=== PATIENT | female | born 1990 | race American Indian/Alaskan Native ===

== ENCOUNTER 2016-06-11 14:50 | Emergency (ER) | payer MEDICAID, OTHER ==
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
[2016-06-11] MEDS ORDERED: TORADOL IM ONE (22:09)
[2016-06-11 22:10] VITALS: BP 117/70
== END 2016-06-11 22:55 | disposition home or self-care (01) ==
LOC: ED 14:50
DX: S16.1XXA Strain of muscle, fascia and tendon at neck level, initial encounter (principal); M54.6 Pain in thoracic spine; J45.909 Unspecified asthma, uncomplicated; V43.52XA Car driver injured in collision with other type car in traffic accident, initial encounter; Y93.9 Activity, unspecified; Y99.9 Unspecified external cause status; Y92.410 Unspecified street and highway as the place of occurrence of the external cause
CPT/HCPCS: 99282

== ENCOUNTER 2016-11-02 11:07 | Emergency (ER) | payer SELFPAY ==
[2016-11-02 12:10] VITALS: BP 126/81
[2016-11-02] MEDS ORDERED: DECADRON IM ONE (12:20)
--- NOTE | 2016-11-02 12:20 | Emergency Department Report ---
ED General Adult HPI - General Chief complaint: Upper Respiratory Infection Stated complaint: SOB/SINUS INFECTION Time Seen by Provider: 11/02/16 12:16 Source: patient Mode of arrival: Ambulatory Limitations: No Limitations - History of Present Illness Initial comments: 26-year-old female presents to the ED complaining about sinus congestion, pressure, pain with postnasal drip and dry intermittent cough. States history of asthma and having some chest tightness today. Denies fever, chest pain, shortness of breath, abdominal pain, nausea, vomiting, diarrhea. -: Gradual, days(s) (3) Radiation: non-radiation - Related Data Previous Rx's Medication Instructions Recorded Last Taken Type Pnv95/Ferrous Fumarate/FA 1 each PO QDAY #30 tablet 04/26/14 Unknown Rx [ Vitamins] Cyclobenzaprine [Flexeril] 10 mg PO TID PRN #15 tablet 06/11/16 Unknown Rx Ibuprofen [Motrin] 600 mg PO Q8H PRN #15 tablet 06/11/16 Unknown Rx ALBUTEROL Inhaler [ProAir HFA 2 puff IH PRN PRN #1 inha 11/02/16 Unknown Rx Inhaler] Amoxicillin/K Clav Tab [Augmentin 1 tab PO Q12HR #14 tab 11/02/16 Unknown Rx 875 mg] Prednisone [predniSONE 10 mg 10 mg PO .TAPER #1 tab.ds.pk 11/02/16 Unknown Rx (6-Day Pack, 21 Tabs)] Allergies Allergy/AdvReac Type Severity Reaction Status Date / Time No Known Allergies Allergy Verified 11/02/16 12:06 ED Review of Systems ROS: Stated complaint: SOB/SINUS INFECTION Other details as noted in HPI Constitutional: denies: chills, fever Eyes: denies: eye pain, eye discharge, vision change ENT: throat pain, congestion. denies: ear pain Respiratory: cough. denies: shortness of breath, wheezing Cardiovascular: denies: chest pain, palpitations Endocrine: no symptoms reported Gastrointestinal: denies: abdominal pain, nausea, diarrhea Genitourinary: denies: urgency, dysuria, discharge Musculoskeletal: denies: back pain, joint swelling, arthralgia Skin: denies: rash, lesions Neurological: denies: headache, weakness, paresthesias Psychiatric: denies: anxiety, depression Hematological/Lymphatic: denies: easy bleeding, easy bruising ED Past Medical Hx - Past Medical History Hx Hypertension: No Hx Diabetes: No Hx Deep Vein Thrombosis: No Hx Renal Disease: No Hx Sickle Cell Disease: No Hx Seizures: No Hx Asthma: Yes (last attack 10/22/2014) Hx COPD: No Hx HIV: No - Social History Smoking Status: Never Smoker Substance Use Type: None - Medications Home Medications: Home Medications Medication Instructions Recorded Confirmed Last Taken Type Pnv95/Ferrous Fumarate/FA 1 each PO QDAY #30 tablet 04/26/14 11/03/14 Unknown Rx [ Vitamins] Cyclobenzaprine [Flexeril] 10 mg PO TID PRN #15 tablet 06/11/16 Unknown Rx Ibuprofen [Motrin] 600 mg PO Q8H PRN #15 tablet 06/11/16 Unknown Rx ALBUTEROL Inhaler [ProAir HFA 2 puff IH PRN PRN #1 inha 11/02/16 Unknown Rx Inhaler] Amoxicillin/K Clav Tab [Augmentin 1 tab PO Q12HR #14 tab 11/02/16 Unknown Rx 875 mg] Prednisone [predniSONE 10 mg 10 mg PO .TAPER #1 tab.ds.pk 11/02/16 Unknown Rx (6-Day Pack, 21 Tabs)] ED Physical Exam - General Limitations: No Limitations General appearance: alert, in no apparent distress - Head Head exam: Present: atraumatic, normocephalic - Eye Eye exam: Present: normal appearance - ENT ENT exam: Present: normal orophraynx, mucous membranes moist, TM's normal bilaterally - Neck Neck exam: Present: normal inspection, full ROM. Absent: tenderness, meningismus, lymphadenopathy - Respiratory Respiratory exam: Present: normal lung sounds bilaterally. Absent: respiratory distress, wheezes, rales, rhonchi, stridor - Cardiovascular Cardiovascular Exam: Present: regular rate, normal rhythm. Absent: systolic murmur, diastolic murmur, rubs, gallop - GI/Abdominal GI/Abdominal exam: Present: soft, normal bowel sounds - Extremities Exam Extremities exam: Present: normal inspection - Back Exam Back exam: Present: normal inspection - Neurological Exam Neurological exam: Present: alert, oriented X3 - Psychiatric Psychiatric exam: Present: normal affect, normal mood - Skin Skin exam: Present: warm, dry, intact, normal color. Absent: rash ED Course Vital Signs 11/02/16 12:06 Temperature 97.5 F L Pulse Rate 76 Respiratory 16 Rate Blood Pressure 126/81 O2 Sat by Pulse 100 Oximetry ED Medical Decision Making - Medical Decision Making Patient is resting comfortably at this time. No wheezing heard on auscultation. No sign of exacerbation. We'll start on antibiotics for sinus infection in addition to albuterol and prednisone. No acute distress at this time. Critical care attestation.: If time is entered above; I have spent that time in minutes in the direct care of this critically ill patient, excluding procedure time. ED Disposition Clinical Impression: Acute URI, Acute bronchitis Disposition: TO HOME OR SELFCARE Is pt being admited?: No Does the pt Need Aspirin: No Condition: Good Instructions: Acute Bronchitis (ED) Prescriptions: ALBUTEROL Inhaler [ProAir HFA Inhaler] 2 puff IH PRN PRN #1 inha PRN Reason: Wheezing Amoxicillin/K Clav Tab [Augmentin 875 mg] 1 tab PO Q12HR #14 tab Prednisone [predniSONE 10 mg (6-Day Pack, 21 Tabs)] 10 mg PO .TAPER #1 tab.ds.pk Referrals: ANASTASIA NICHOLSON MD [Staff Physician] - 3-5 Days Forms: Work/School Release Form(ED) Time of Disposition: 12:19
== END 2016-11-02 12:38 | disposition home or self-care (01) ==
LOC: ED 11:07
DX: J06.9 Acute upper respiratory infection, unspecified (principal); J20.9 Acute bronchitis, unspecified; J45.909 Unspecified asthma, uncomplicated
CPT/HCPCS: 96372; 99282; J1100

== ENCOUNTER 2018-07-13 07:58 | Emergency (ER) | payer OTHER ==
[2018-07-13 08:12] VITALS: BP 115/74
--- NOTE | 2018-07-13 09:27 | Emergency Department Report ---
Minor Respiratory - HPI Chief Complaint: Upper Respiratory Infection Stated Complaint: SORE THROAT/COUGH/CONGESTION Time Seen by Provider: 07/13/18 08:49 Duration: 2 weeks Minor Respiratory: Yes Rhinorrhea, Yes Sore Throat, Yes Cough (able to speak in complete sentences) Other History: 28-year-old -[place] female presents to the emergency room for cough, runny nose, sore throat for 2 weeks. Patient denies any fever chills no nausea or vomiting. Patient reports that she tried [id number] Zyrtec and Claritin and some nasal spray. Patient reports a history of asthma. ED Review of Systems ROS: Stated complaint: SORE THROAT/COUGH/CONGESTION Other details as noted in HPI Comment: All other systems reviewed and negative Constitutional: denies: chills, fever ENT: throat pain, congestion, other (rhinorrhea) Respiratory: cough. denies: shortness of breath Endocrine: no symptoms reported Gastrointestinal: denies: abdominal pain, nausea, diarrhea Genitourinary: denies: urgency, dysuria, discharge Musculoskeletal: denies: back pain, joint swelling, arthralgia Skin: denies: rash, lesions Neurological: denies: headache, weakness, paresthesias ED Past Medical Hx - Past Medical History Hx Hypertension: No Hx Diabetes: No Hx Deep Vein Thrombosis: No Hx Renal Disease: No Hx Sickle Cell Disease: No Hx Seizures: No Hx Asthma: Yes (last attack 10/22/2014) Hx COPD: No Hx HIV: No - Social History Smoking Status: Never Smoker - Medications Home Medications: Home Medications Medication Instructions Recorded Confirmed Last Taken Type Pnv95/Ferrous Fumarate/FA 1 each PO QDAY #30 tablet 04/26/14 11/03/14 Unknown Rx [ Vitamins] Cyclobenzaprine [Flexeril] 10 mg PO TID PRN #15 tablet 06/11/16 Unknown Rx Ibuprofen [Motrin] 600 mg PO Q8H PRN #15 tablet 06/11/16 Unknown Rx ALBUTEROL Inhaler (OR & NICU) 2 puff IH PRN PRN #1 inha 11/02/16 Unknown Rx [ProAir HFA Inhaler] Amoxicillin/K Clav Tab [Augmentin 1 tab PO Q12HR #14 tab 11/02/16 Unknown Rx 875 mg] Prednisone [predniSONE 10 mg 10 mg PO .TAPER #1 tab.ds.pk 11/02/16 Unknown Rx (6-Day Pack, 21 Tabs)] Fluticasone [Flonase] 1 spray NS QDAY #1 bottle 07/13/18 Unknown Rx Levocetirizine Dihydrochloride 5 mg PO QDAY #30 tablet 07/13/18 Unknown Rx Minor Respiratory Exam - Exam General: Vital signs noted. No distress. Alert and acting appropriately. HEENT: Yes Moist Mucous Membranes, No Pharyngeal Erythema, No Pharyngeal Exudates, No Rhinorrhea, No Conjuctival Injection, No Frontal Tenderness, No Maxillary Tenderness Ear: Neither TM Bulge, Neither TM Erythema, Neither EAC Pain, Neither EAC Discharge Neck: Yes Supple, No Adenopathy Lungs: Yes Good Air Exchange, No Wheezes, No Ronchi, No Stridor, No Cough, No Labored Respirations, No Retractions, No Use of Accessory Muscles, No Other Abnormal Lung Sounds Heart: Yes Regular, No Murmur Abdomen: Yes Normal Bowel Sounds, No Tenderness, No Peritoneal Signs Skin: No Rash, No Edema Neurologic: Alert and oriented, no deficits. Musculoskeletal: Unremarkable. ED Course Vital Signs 07/13/18 08:10 Temperature 98.3 F Pulse Rate 86 Respiratory 18 Rate Blood Pressure 115/74 O2 Sat by Pulse 99 Oximetry ED Medical Decision Making - Medical Decision Making Patient has been evaluated by this provider fast. Patient comes in with allergic rhinitis symptoms currently has had no coughing during my evaluation. Patient has no wheezing no shortness of breath is pulse oximetry is 99% discussed the patient she can try taking Xyzal and Flonase inhaler. Symptoms persisted follow up with her primary care provider. Critical care attestation.: If time is entered above; I have spent that time in minutes in the direct care of this critically ill patient, excluding procedure time. ED Disposition Clinical Impression: Allergic rhinitis Disposition: DC-01 TO HOME OR SELFCARE Is pt being admited?: No Does the pt Need Aspirin: No Condition: Stable Instructions: Allergic Rhinitis (ED) Additional Instructions: Take medication as prescribed. Follow up with her primary care provider if his symptoms persist or gets worse. He can take Tylenol or ibuprofen for sore throat. Prescriptions: Fluticasone [Flonase] 1 spray NS QDAY #1 bottle Levocetirizine Dihydrochloride 5 mg PO QDAY #30 tablet Referrals: HEATH DON MD [Primary Care Provider] - 3-5 Days
== END 2018-07-13 09:47 | disposition home or self-care (01) ==
LOC: ED 07:58
DX: J30.9 Allergic rhinitis, unspecified (principal); J45.909 Unspecified asthma, uncomplicated; Z79.899 Other long term (current) drug therapy
CPT/HCPCS: 99281